=== PATIENT | female | born 1965 | race African-American/Black ===

== ENCOUNTER 2018-07-06 10:49 | Emergency (ER) | payer OTHER ==
[2018-07-06] MEDS: KETOROLAC 30 MG INJ IM (12:10)
== END 2018-07-06 14:17 | disposition home or self-care (01) ==
LOC: FTE 10:49
DX: S93.401A Sprain of unspecified ligament of right ankle, initial encounter (principal); S39.92XA Unspecified injury of lower back, initial encounter; X58.XXXA Exposure to other specified factors, initial encounter; Y92.89 Other specified places as the place of occurrence of the external cause
CPT/HCPCS: 29515; 73610-RT; 73700; 81025; 96372; 99285-25

== ENCOUNTER 2018-10-20 08:50 | Emergency (ER) | payer OTHER ==
[2018-10-20] MEDS: DEXAMETHASONE 10 MG/ML 1 ML INJ IM (09:50)
[2018-10-20] MEDS: KETOROLAC 30 MG INJ IM (09:51)
[2018-10-20] MEDS: METHOCARBAMOL 750 MG TAB PO (10:25)
== END 2018-10-20 11:19 | disposition home or self-care (01) ==
LOC: FTE 11:19
DX: M54.42 Lumbago with sciatica, left side (principal); M54.41 Lumbago with sciatica, right side
CPT/HCPCS: 72100; 96372; 99284-25

== ENCOUNTER 2019-06-26 16:22 | Emergency (ER) | payer OTHER ==
[2019-06-26 17:07] LABS: ADD MAN DIFF? NO
[2019-06-26 17:10] LABS: BASOPHIL # 0.1 10^3/ul (0.0-0.1); BASOPHILS % 0.7 % (0.0-2.0); EOSINOPHILS # 0.2 10^3/ul (0.0-0.5); EOSINOPHILS % 2.4 % (0.0-7.0); HEMATOCRIT 41.2 % (37.0-47.0); HEMOGLOBIN 12.1 g/dl (12.0-16.0); LYMPHOCYTES # 3.1 10^3/ul (0.8-2.9); LYMPHOCYTES % 42.5 % (15.0-51.0); MEAN CORPUSCULAR HEMOGLOBIN 23.7 pg (29.0-33.0); MEAN CORPUSCULAR HGB CONC 29.4 g/dl (32.0-37.0); MEAN CORPUSCULAR VOLUME 80.6 fl (82.0-101.0); MEAN PLATELET VOLUME 8.6 fl (7.4-10.4); MONOCYTE # 0.5 10^3/ul (0.3-0.9); MONOCYTES % 7.2 % (0.0-11.0); NEUTROPHIL # 3.4 10^3/ul (1.6-7.5); NEUTROPHILS % 46.9 % (39.0-77.0); PLATELET COUNT 446 10^3/UL (140-415); RED BLOOD COUNT 5.11 10^6/ul (4.20-5.40); RED CELL DISTRIBUTION WIDTH 14.6 % (11.5-14.5)
[2019-06-26 17:10] LABS: WHITE BLOOD COUNT 7.2 10^3/ul (4.8-10.8)
[2019-06-26] MEDS: PROCHLORPERAZINE 10 MG INJ IV (17:12)
[2019-06-26] MEDS: DIPHENHYDRAMINE 50 MG INJ IV (17:12)
[2019-06-26] MEDS: SOD CHLORIDE 0.9% 1,000 ML IV (17:12)
[2019-06-26 17:31] LABS: INR 0.98; PARTIAL THROMBOPLASTIN TIME 28.8 Sec (23.0-35.0); PROTIME 13.1 Sec (11.9-14.9)
[2019-06-26 17:42] LABS: ANION GAP 7 (5-13); BLOOD UREA NITROGEN 11 mg/dl (7-20); CALCIUM 9.6 mg/dl (8.4-10.2); CARBON DIOXIDE 28 mmol/L (21-31); CHLORIDE 103 mmol/L (97-110); CREATININE 0.79 mg/dl (0.44-1.00); Estimated GFR > 60 mL/min (>60); GLUCOSE 107 mg/dl (70-220); POTASSIUM 4.1 mmol/L (3.5-5.1); SODIUM 138 mmol/L (135-144)
[2019-06-26] MEDS: SOD CHLORIDE 0.9% 100 ML (18:42)
[2019-06-26] MEDS: IOHEXOL 100 ML (18:42)
== END 2019-06-26 19:41 | disposition home or self-care (01) ==
LOC: E/R 16:22
DX: I16.0 Hypertensive urgency (principal); G43.909 Migraine, unspecified, not intractable, without status migrainosus; S66.201A Unspecified injury of extensor muscle, fascia and tendon of right thumb at wrist and hand level, initial encounter; X58.XXXA Exposure to other specified factors, initial encounter; Y92.9 Unspecified place or not applicable
CPT/HCPCS: 29130; 36415; 70450; 70496; 70498; 73140; 80048; 81025; 85025; 85610; 85730; 96374; 96375; 99285-25